=== PATIENT | male | born 1960 | race African-American/Black ===

== ENCOUNTER 2018-07-11 18:07 | Emergency (ER) | payer MEDICARE, OTHER ==
[~2018-07-11 18:07] MED LIST: ISOVUE-370 76%-LOCM 1 ML ONE
[2018-07-11] MEDS ORDERED: Ondansetron HCl/PF 4 MG/2 ML Vial ONE (18:15)
[2018-07-11] MEDS ORDERED: Adacel (T-DAP) 0.5 ML VIAL ONE (18:15)
[2018-07-11 18:40] LABS: #Eosinphils 0.4 thou/uL (0.0-0.7); #Lymphocytes 1.2 thou/uL (1.20-3.40); #Monocytes 0.3 thou/uL (0.11-0.59); #Neutrophils 3.3 thou/uL (1.40-6.50); %Basophils 0.6 % (0.0-1.0); %Lymphocytes 22.2 % (21.0-51.0); %Monocytes 6.4 % (0.0-10.0); %Neutrophils 62.8 % (42.0-75.0); Hemoglobin 12.8 g/dL (14.0-18.0); Mean Corpuscular HGB CONC 34.7 g/dL (32.0-36.0); Mean Corpuscular Hemoglobin 31.4 pg (27.0-31.0); Mean Corpuscular Volume 90.7 fL (78.0-98.0); Mean Platelet Volume 7.7 fL (7.4-10.4); Platelet Count 172 thou/uL (130-400); Red Blood Cell (RBC) Count 4.08 mill/uL (4.70-6.10); White Blood Cell (WBC) Count 5.3 thou/uL (4.8-10.8)
[2018-07-11 19:02] LABS: ALT (SGPT) 11 U/L (8-55); AST (SGOT) 28 U/L (5-34); Albumin 4.3 g/dL (3.5-5.0); Alcohol Less than 10 mg/dL (Less than 10); Alkaline Phosphatase 66 U/L (40-150); Anion Gap 14 mmol/L (10-20); BUN (Urea Nitrogen) 10 mg/dL (8.4-25.7); Bilirubin, Total 0.7 mg/dL (0.2-1.2); Calc. Creatinine Clearance 0 mL/min (70-130); Calcium 9.1 mg/dL (7.8-10.44); Carbon Dioxide 23 mmol/L (22-29); Chloride 103 mmol/L (98-107); Estimated GFR-MDRD 51; Globulin 3.9 g/dL (2.4-3.5); Glucose 98 mg/dL (70-105); Potassium 3.8 mmol/L (3.5-5.1); Protein, Total 8.2 g/dL (6.0-8.3); Sodium 136 mmol/L (136-145)
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
[2018-07-11] MEDS ORDERED: Lidocaine 1% w/Epinephrine 1:100K 20 ML VIAL ONE (19:17)
[2018-07-11] MEDS ORDERED: Fentanyl 100 MCG/2 ML VIAL ONE (19:24)
== END 2018-07-11 21:03 | disposition short-term general hospital (02) ==
LOC: ERS 18:07
DX: S06.0X1A Concussion with loss of consciousness of 30 minutes or less, initial encounter (principal); S01.111A Laceration without foreign body of right eyelid and periocular area, initial encounter; S01.511A Laceration without foreign body of lip, initial encounter; I10 Essential (primary) hypertension; F41.9 Anxiety disorder, unspecified; F31.9 Bipolar disorder, unspecified; Z86.73 Personal history of transient ischemic attack (TIA), and cerebral infarction without residual deficits; Z79.82 Long term (current) use of aspirin; V89.2XXA Person injured in unspecified motor-vehicle accident, traffic, initial encounter
CPT/HCPCS: 36415; 40650; 70450; 70486; 71260; 72125; 74177; 80053; 80307; 85025; 90471; 90715; 96361; 96374; 96375; G0390; J2001; J2405; J3010